=== PATIENT | female | born 1985 | race Two or more races ===

== ENCOUNTER 2024-10-19 01:14 | Emergency (ER) | payer MEDICAID, OTHER ==
[~2024-10-19] VITALS: Ht 162.6 cm; Wt 95.7 kg
[2024-10-19 01:49] LABS: PLATELET COUNT (AUTO) 264 K/uL (150-450); RED BLOOD CELL COUNT(AUTO) 4.28 MIL/uL (4.0-5.2); RED CELL DISTRIBUTION WIDTH 13.4 % (11.5-15.0); WHITE BLOOD COUNT (AUTO) 7.8 K/uL (4.3-11.0)
[2024-10-19 01:57] LABS: CALCIUM, SERUM 9.2 mg/dL (8.5-10.1); CREATININE 0.4 mg/dL (0.6-1.3); SODIUM SERUM 140.0 mmol/L (136-145); UREA NITROGEN, BLOOD 6.0 mg/dL (7-18)
[2024-10-19 02:03] LABS: ASPARTATE AMINOTRANSFERASE 11.0 U/L (15-37); TOTAL PROTEIN, SERUM 6.9 g/dL (6.4-8.2)
[2024-10-19] MEDS ORDERED: LACTULOSE 10 G/15 ML UDC (PYXIS) ONE (02:14)
[2024-10-19] MEDS: IV NS 0.9% 1,000 ML BAG IV ONE (02:27)
[2024-10-19] MEDS: LACTULOSE 10 G/15 ML UDC (PYXIS) PO ONE (02:27)
[2024-10-19] MEDS: MINERAL OIL 133 ML (PYXIS) 1 EA ENEMA RC ONE ×2 (02:27→05:31)
[2024-10-19 02:45] VITALS: TEMP 98.8
[2024-10-19] MEDS ORDERED: MINERAL OIL 133 ML (PYXIS) 1 EA ENEMA RC ONE (05:31)
[2024-10-19] MEDS ORDERED: BISA10SU11 RC (05:43)
[2024-10-19 06:30] VITALS: BP 111/52; O2SAT 98
== END 2024-10-19 06:30 | disposition home or self-care (01) ==
LOC: ER 01:20
DX: K56.41 Fecal impaction (principal); I10 Essential (primary) hypertension; Z98.84 Bariatric surgery status; Z79.899 Other long term (current) drug therapy
CPT/HCPCS: 99285; 74176; 96360; 71045; 93005; 85025; 80048; 80076; 36415; 82962; J7030